=== PATIENT | female | born 1955 | race Caucasian/White ===

== ENCOUNTER 2020-01-02 08:32 | Day surgery (SDC) | payer OTHER ==
--- NOTE | 2019-12-27 09:38 | HP ---
DATE OF SURGERY: 01/02/2020 HISTORY OF PRESENT ILLNESS: The patient presents for a three year follow up colonoscopy. She had colon polyps on last colonoscopy. She also had some diverticulitis in the past. She reports some constipation and pain with bowel movement. She has reported some dark stools at times. PAST MEDICAL HISTORY: Chronic obstructive pulmonary disease. Diabetes. Anxiety. Hyperlipidemia. High blood pressure. PAST SURGICAL HISTORY: Below knee amputation. Rotator cuff. Hysterectomy. Cholecystectomy. ALLERGIES: MORPHINE. DILAUDID. MEDICATIONS: Metformin. Clonazepam. Pravastatin. Losartan. Norvasc. Dexilant. FAMILY HISTORY: None reported. SOCIAL HISTORY: Smokes a half pack of cigarettes a day, denies alcohol. REVIEW OF SYSTEMS: CONSTITUTIONAL: No fever or chills. CHEST: Denies shortness of breath. CVS: Denies chest pain. ABDOMEN: Denies abdominal pain, nausea, vomiting, diarrhea. Reports occasional constipation and dark stool as noted. : Denies dysuria or hematuria. PHYSICAL EXAMINATION: GENERAL: No acute distress. CHEST: Nonlabored. No shortness of breath. CVS: Regular rate and rhythm. ABDOMEN: Soft, nontender to palpation. EXTREMITIES: No edema. NEUROLOGIC: Alert. PSYCHIATRIC: Appropriate. IMPRESSION: History of colon polyps, diverticulitis, constipation and dark stools. PLAN: Colonoscopy. As dictated by Jessica Vieira NP.
[2020-01-02] MEDS ORDERED: Lactated Ringers 1,000 ML IV ONE (08:45)
[2020-01-02] MEDS ORDERED: Lactated Ringers 1,000 ML IV SCH (09:00)
[2020-01-02] MEDS ORDERED: Ketamine HCl 50 MG/ML ONE (11:49)
[2020-01-02] MEDS ORDERED: DIPRIVAN 200 MG/20 ML IV ONE (11:49)
[2020-01-02 12:52] VITALS: BP 120/67; PULSE 66; O2SAT 94
--- NOTE | 2020-01-06 08:35 | OP ---
SURGERY DATE/TIME: 01/02/2020 1149 PREOPERATIVE DIAGNOSIS: Follow up previous polyps. POSTOPERATIVE DIAGNOSIS: Moderate diverticulosis. PROCEDURE: Colonoscopy complete to cecum. SURGEON: Yrn Mcwilliams M.D. ANESTHESIA: MAC. COMPLICATIONS: None. CONDITION: Stable. PLAN: Rescope five years. PREP SCORE: Excellent. WITHDRAWAL TIME: Six minutes. INDICATION: A 64 year old requiring follow up. DESCRIPTION OF PROCEDURE: Taken to endoscopy. Left lateral decubitus position. Anal digital examination satisfactory. Scope introduced. Scope advanced to the cecum. Base of the cecum, ileocecal valve, appendiceal area normal. Ascending, hepatic, transverse, splenic, descending. Sigmoid moderate diverticulosis. Rectum and anus satisfactory. PLAN: Follow up in five years.
== END 2020-01-02 13:08 | disposition home or self-care (01) ==
LOC: SDC 08:32
PROVIDERS: ATTEND Surgery
DX: Z09 Encounter for follow-up examination after completed treatment for conditions other than malignant neoplasm (principal); Z86.010 Personal history of colon polyps; K57.30 Diverticulosis of large intestine without perforation or abscess without bleeding; K59.00 Constipation, unspecified; E11.9 Type 2 diabetes mellitus without complications; J44.9 Chronic obstructive pulmonary disease, unspecified; E78.5 Hyperlipidemia, unspecified; F41.9 Anxiety disorder, unspecified; Z79.899 Other long term (current) drug therapy
CPT/HCPCS: 82962; J2704

== ENCOUNTER 2022-09-28 12:00 | Emergency (ER) | payer MEDICARE, OTHER ==
[2022-09-28 12:55] LABS: Absolute Neutrophil Ct (ANC) 2.85 x10^3/uL (1.4-6.9); BASOPHIL % 0.6 % (0.0-0.4); Basophil (Absolute #) 0.03 x10^3/uL (0-0.4); Eosinophil % 1.6 % (0.00-5.0); Eosinophil (Absolute #) 0.08 x10^3/uL (0-0.5); Hematocrit 41.9 % (35-47); Hemoglobin 13.7 g/dL (12.0-16.0); IMMATURE GRAN # 0.02 x10^3u/L (0.00-0.03); IMMATURE GRAN % 0.4 % (0.00-0.4); Lymphocyte (Absolute #) 1.79 x10^3/uL (1.0-4.6); Lymphocytes % 35.3 % (24.0-44.0); Mean Cell Volume 93.3 fL (78-100); Mean Corpuscular Hemoglobin 30.5 pg (26-32); Mean Corpuscular Hgb Concent. 32.7 g/dL (32-36); Mean Platelet Volume 10.2 fL (7.5-11.0); Monocytes % 5.9 % (0.0-12.0); Neutrophil % 56.2 % (36.0-66.0); Platelet Count 181 x10^3/uL (150-450); Red Blood Count 4.49 x10^6/uL (4.1-5.4); Red Cell Distribution Width 13.1 % (11.5-14.0); White Blood Count 5.1 x10^3/uL (4.0-10.5)
[2022-09-28 13:05] LABS: Appearance Clear (Clear); Bacteria None Seen /HPF (None Seen); Bilirubin Negative (Negative); Blood Negative (Negative); Epithelial Cells None Seen /HPF (None Seen); Glucose, Urine Negative (Negative); Hyaline Casts NONE SEEN /LPF (0-2); Ketones Negative (Negative); Leukocyte Esterase Negative (Negative); Nitrite Negative (Negative); Protein,Urine Dip Negative (Negative); RBC 0-2 /HPF (0-5); Specific Gravity <=1.005 (1.005-1.030); WBC 0-2 /HPF (0-5)
[2022-09-28 13:08] LABS: ALBUMIN 3.8 g/dL (3.5-5.0); ALKALINE PHOSPHATASE 89 U/L (38-126); ANION GAP 10.8 MEQ/L (5-15); BLOOD UREA NITROGEN 7 mg/dL (7-17); CHLORIDE 107 mmol/L (98-107); Calcium 8.4 mg/dL (8.4-10.2); Carbon Dioxide 30 mmol/L (22-30); EST GLOMERULAR FILTRATION RATE > 60.0 ML/MIN; Glucose 102 mg/dL (74-106); Potassium 3.6 mmol/L (3.5-5.1); SGOT/AST 24 U/L (14-36); SGPT/ALT 19 U/L (0-35); SODIUM 144 mmol/L (137-145); Total Protein 6.8 g/dL (6.3-8.2)
--- NOTE | 2022-09-28 13:15 | ERPHSYRPT ---
- History of Present Illness Time Seen by Provider: 09/28/22 13:13 Source: patient Exam Limitations: no limitations Patient Subjective Stated Complaint: C/O black stools Triage Nursing Assessment: Patient brought back to ER in a W/C. She is alert and oriented. No SOB. Patient with artificial leg from BK amputation. She is steady on her feet; assist with stand by assist of one staff member to use toilet without difficulties. Denies pain. Physician History: Patient is a 66-year-old female presents to the emergency department as a referral from her primary care doctor for evaluation of dark tarry stools. Patient states she feels somewhat weak. No other complaints no pain. No nausea vomiting diaphoresis. Upon presentation patient appears well. No distress. Patient ambulatory with a below-knee prosthesis. Vital stable. Patient voices no other complaints or concerns at this time.\ Portions of this note were created with voice recognition technology. There may be grammatical, spelling, punctuation or sound alike errors Timing/Duration: today Severity: mild Modifying Factors: Improves With: nothing Associated Symptoms: denies symptoms Allergies/Adverse Reactions: fentanyl Allergy (Verified 09/28/22 12:19) morphine Allergy (Verified 09/28/22 12:19) Hives hydromorphone [From Dilaudid] Adverse Reaction (Verified 09/28/22 12:19) Headache Home Medications: Aspirin [Baby Aspirin] 81 mg PO DAILY 04/06/13 [History] clonazePAM [Clonazepam] 2 mg PO HS 04/06/13 [History] Amlodipine Besylate 5 mg [Norvasc 5 mg] 2.5 mg PO DAILY 01/02/20 [History] Benazepril HCl [Lotensin] 20 mg PO DAILY 01/02/20 [History] Omeprazole Magnesium [Prilosec] 40 mg PO DAILY 01/02/20 [History] Clopidogrel Bisulfate [PLAVIX Tablet] 1 tab PO DAILY 09/28/22 [History] Fluticasone/Umeclidin/Vilanter [Trelegy Ellipta 100-62.5-25] 1 puff PO BID 09/28/22 [History] Glyburide 5 mg [Micronase 5 MG] 1 tab PO DAILY 09/28/22 [History] Hydrocodone/Acetaminophen [Hydrocodone-Acetamin 7.5-325] 1 tab PO Q6H PRN PRN 09/28/22 [History] Pregabalin 50 mg [Lyrica 50MG] 1 cap PO BID 09/28/22 [History] Hx Tetanus, Diphtheria Vaccination/Date Given: Yes Hx Influenza Vaccination/Date Given: Yes Hx Pneumococcal Vaccination/Date Given: No Immunizations Up to Date: Yes Travel Risk - International Travel Have you traveled outside of the country in past 3 weeks: No - Coronavirus Screening Are you exhibiting any of the following symptoms?: No Close contact with a COVID-19 positive Pt in past 14-21 Days: No - Vaccine Status Have you recieved a Covid-19 vaccination: Yes Director Graphics: [employer] - Vaccination Dates Date of 2cond Vaccination (if applicable): ? - Review of Systems Constitutional: No Symptoms, No Fever, No Chills Eyes: No Symptoms Ears, Nose, & Throat: No Symptoms Respiratory: No Symptoms, No Cough, No Dyspnea Cardiac: No Symptoms, No Chest Pain, No Edema, No Syncope Abdominal/Gastrointestinal: No Symptoms, No Abdominal Pain, No Nausea, No Vo miting, No Diarrhea Genitourinary Symptoms: No Symptoms, No Dysuria Musculoskeletal: No Symptoms, No Back Pain, No Neck Pain Skin: No Symptoms, No Rash Neurological: No Symptoms, No Dizziness, No Focal Weakness, No Sensory Changes Psychological: No Symptoms Endocrine: No Symptoms Hematologic/Lymphatic: No Symptoms Immunological/Allergic: No Symptoms All Other Systems: Reviewed and Negative - Past Medical History Pertinent Past Medical History: Yes Neurological History: No Pertinent History ENT History: No Pertinent History Cardiac History: Aneurysm, Hypertension Respiratory History: COPD, Emphysema, Sleep Apnea Endocrine Medical History: Diabetes Type II Musculoskeletal History: Degenerative Disk Disease GI Medical History: Diverticulosis, Gallbladder Disease, Polyps History: No Pertinent History Psycho-Social History: Depression Female Reproductive Disorders: No Pertinent History - Past Surgical History Past Surgical History: Yes Neuro Surgical History: No Pertinent History Cardiac: Angioplasty, Cardiac Catheterization Respiratory: No Pertinent History Gastrointestinal: Cholecystectomy Genitourinary: No Pertinent History Musculoskeletal: Amputation, Orthopedic Surgery Female Surgical History: Section, Hysterectomy Other Surgical History: Left leg BKA, Right foot surgery, Bilateral shoulder repair, left carpal tunnel x 2, tumor removed off of left arm - Social History Smoking Status: Current every day smoker How long have you smoked: YRS Exposure to second hand smoke: No Drug Use: none Patient Lives Alone: No Significant Family History: no pertinent family hx - Nursing Vital Signs Nursing Vital Signs: Initial Vital Signs Temperature 97.7 F 09/28/22 12:19 Pulse Rate 47 L 09/28/22 12:19 Respiratory Rate 11 L 09/28/22 12:19 Blood Pressure 149/73 09/28/22 12:19 O2 Sat by Pulse Oximetry 96 09/28/22 12:19 Pain Scale Pain Intensity 0 - Physical Exam General Appearance: no apparent distress, alert Eye Exam: PERRL/EOMI, eyes nml inspection Ears, Nose, Throat Exam: normal ENT inspection, TMs normal, pharynx normal, moist mucous membranes Neck Exam: normal inspection, non-tender, supple, full range of motion Respiratory Exam: normal breath sounds, lungs clear, airway intact, No respiratory distress Cardiovascular Exam: regular rate/rhythm, normal heart sounds, normal peripheral pulses Gastrointestinal/Abdomen Exam: soft, normal bowel sounds, No tenderness, No mass Back Exam: normal inspection, normal range of motion, No CVA tenderness, No vertebral tenderness Extremity Exam: normal inspection, normal range of motion, pelvis stable, other (Left BKA) Neurologic Exam: alert, oriented x 3, cooperative, normal mood/affect, nml cerebellar function, nml station & gait, sensation nml, No motor deficits Skin Exam: normal color, warm, dry, No rash Lymphatic Exam: No adenopathy SpO2 Interpretation: normal SpO2: 96 O2 Delivery: Room Air - Course Nursing assessment & vital signs reviewed: Yes EKG Interpreted by Me: RATE (47), Sinus Rhythm, NORMAL AXIS, NORMAL INTERVALS Ordered Tests: Active Orders 24 hr Category Date Time Status EKG-ER Only STAT Care 09/28/22 13:30 Active CBC W DIFF Stat Lab 09/28/22 12:50 Completed CMP Stat Lab 09/28/22 12:50 Completed TROPONIN Q4H Lab 09/28/22 12:50 Completed TROPONIN Q4H Lab 09/28/22 17:30 Ordered TROPONIN Q4H Lab 09/28/22 21:30 Ordered UA W/RFX UR CULTURE Stat Lab 09/28/22 12:26 Completed Lab/Rad Data: Laboratory Result Diagrams 09/28/22 12:50 09/28/22 12:50 Laboratory Results 09/28/22 09/28/22 09/28/22 Range/Units 12:50 12:50 12:50 WBC 5.1 (4.0-10.5) x10^3/uL RBC 4.49 (4.1-5.4) x10^6/uL Hgb 13.7 (12.0-16.0) g/dL Hct 41.9 (35-47) % MCV 93.3 (78-100) fL MCH 30.5 (26-32) pg MCHC 32.7 (32-36) g/dL RDW 13.1 (11.5-14.0) % Plt Count 181 (150-450) x10^3/uL MPV 10.2 (7.5-11.0) fL Gran % 56.2 (36.0-66.0) % Immature Gran % (Auto) 0.4 (0.00-0.4) % Nucleat RBC Rel Count 0.0 (0.00-0.1) % Eos # (Auto) 0.08 (0-0.5) x10^3/uL Immature Gran # (Auto) 0.02 (0.00-0.03) x10^3u/L Absolute Lymphs (auto) 1.79 (1.0-4.6) x10^3/uL Absolute Monos (auto) 0.30 (0.0-1.3) x10^3/uL Absolute Nucleated RBC 0.00 (0.00-0.01) x10^3u/L Lymphocytes % 35.3 (24.0-44.0) % Monocytes % 5.9 (0.0-12.0) % Eosinophils % 1.6 (0.00-5.0) % Basophils % 0.6 (0.0-0.4) % Absolute Granulocytes 2.85 (1.4-6.9) x10^3/uL Basophils # 0.03 (0-0.4) x10^3/uL Sodium 144 (137-145) mmol/L Potassium 3.6 (3.5-5.1) mmol/L Chloride 107 (98-107) mmol/L Carbon Dioxide 30 (22-30) mmol/L Anion Gap 10.8 (5-15) MEQ/L BUN 7 (7-17) mg/dL Creatinine 0.50 L (0.52-1.04) mg/dL Estimated GFR > 60.0 ML/MIN Glucose 102 (74-106) mg/dL Calcium 8.4 (8.4-10.2) mg/dL Total Bilirubin 0.30 (0.2-1.3) mg/dL AST 24 (14-36) U/L ALT 19 (0-35) U/L Alkaline Phosphatase 89 (38-126) U/L Troponin I < 0.012 (0.000-0.034) ng/mL Serum Total Protein 6.8 (6.3-8.2) g/dL Albumin 3.8 (3.5-5.0) g/dL Urine Color (Yellow) Urine Appearance (Clear) Urine pH (4.6-8.0) Ur Specific Homer (1.005-1.030) Urine Protein (Negative) Urine Glucose (UA) (Negative) mg/dL Urine Ketones (Negative) Urine Blood (Negative) Urine Nitrite (Negative) Urine Bilirubin (Negative) Urine Urobilinogen (0.2) mg/dL Ur Leukocyte Esterase (Negative) U Hyaline Cast (Auto) (0-2) /LPF Urine Microscopic RBC (0-5) /HPF Urine Microscopic WBC (0-5) /HPF Ur Epithelial Cells (None Seen) /HPF Urine Bacteria (None Seen) /HPF Urine Culture Reflexed (NO) 09/28/22 Range/Units 12:26 WBC (4.0-10.5) x10^3/uL RBC (4.1-5.4) x10^6/uL Hgb (12.0-16.0) g/dL Hct (35-47) % MCV (78-100) fL MCH (26-32) pg MCHC (32-36) g/dL RDW (11.5-14.0) % Plt Count (150-450) x10^3/uL MPV (7.5-11.0) fL Gran % (36.0-66.0) % Immature Gran % (Auto) (0.00-0.4) % Nucleat RBC Rel Count (0.00-0.1) % Eos # (Auto) (0-0.5) x10^3/uL Immature Gran # (Auto) (0.00-0.03) x10^3u/L Absolute Lymphs (auto) (1.0-4.6) x10^3/uL Absolute Monos (auto) (0.0-1.3) x10^3/uL Absolute Nucleated RBC (0.00-0.01) x10^3u/L Lymphocytes % (24.0-44.0) % Monocytes % (0.0-12.0) % Eosinophils % (0.00-5.0) % Basophils % (0.0-0.4) % Absolute Granulocytes (1.4-6.9) x10^3/uL Basophils # (0-0.4) x10^3/uL Sodium (137-145) mmol/L Potassium (3.5-5.1) mmol/L Chloride (98-107) mmol/L Carbon Dioxide (22-30) mmol/L Anion Gap (5-15) MEQ/L BUN (7-17) mg/dL Creatinine (0.52-1.04) mg/dL Estimated GFR ML/MIN Glucose (74-106) mg/dL Calcium (8.4-10.2) mg/dL Total Bilirubin (0.2-1.3) mg/dL AST (14-36) U/L ALT (0-35) U/L Alkaline Phosphatase (38-126) U/L Troponin I (0.000-0.034) ng/mL Serum Total Protein (6.3-8.2) g/dL Albumin (3.5-5.0) g/dL Urine Color Yellow (Yellow) Urine Appearance Clear (Clear) Urine pH 7.0 (4.6-8.0) Ur Specific Homer <=1.005 (1.005-1.030) Urine Protein Negative (Negative) Urine Glucose (UA) Negative (Negative) mg/dL Urine Ketones Negative (Negative) Urine Blood Negative (Negative) Urine Nitrite Negative (Negative) Urine Bilirubin Negative (Negative) Urine Urobilinogen 1.0 A (0.2) mg/dL Ur Leukocyte Esterase Negative (Negative) U Hyaline Cast (Auto) NONE SEEN (0-2) /LPF Urine Microscopic RBC 0-2 (0-5) /HPF Urine Microscopic WBC 0-2 (0-5) /HPF Ur Epithelial Cells None Seen (None Seen) /HPF Urine Bacteria None Seen (None Seen) /HPF Urine Culture Reflexed NO (NO) - Progress Progress: improved Progress Note: Patient is a 66-year-old female presents to our ED as a referral from her primary care doctor for evaluation of dark stools and generalized malaise/fatigue. Patient's physical exam essentially unremarkable. Patient has a left below-knee amputation. No chest pain or shortness of breath. Symptoms are mild to moderate in intensity. No specific worsening improving factors. Patient voices no other complaints or concerns at this time. Portions of this note were created with voice recognition technology. There may be grammatical, spelling, punctuation or sound alike errors 09/28/22 14:26 Work-up essentially nonremarkable. CBC CMP ordered. Both negative. Troponin negative. Urinalysis negative. Likely assess the stool for blood however this is done via stool sample. Patient unable to produce a stool sample in our ED. Patient on Prilosec at home. Patient advised discontinue Prilosec and we will initiate pantoprazole. Patient feels well. Patient states she is ready for discharge. She has no other complaints. Patient understands that she will need to follow-up with her primary care doctor this week to arrange for an outpatient colonoscopy and possibly an EGD. Patient's last colonoscopy was over 10 years ago per patient. Patient has a sinus bradycardia on her EKG. However this is chronic. Patient has no symptoms regarding to the bradycardia. No lightheadedness. No dizziness. No chest pain. Complexity of problems is acute. Complexity of the problem is moderate acute complicated with systemic manifestations. No critical care time Complexity of data reviewed and analyzed is moderate. Patient served as independent historian. Laboratory work-up and urinalysis were reviewed and analyzed by Dr. Tucker. EKG independently analyzed by Dr. Tucker. Attempted to contact patient's primary care doctor for follow-up and update as primary care doctor referred patient to our ED. However we will and unable to contact patient's provider for an update. Risk of complication and or risk morbidity/mortality of patient management is moderate. A prescription for pantoprazole was forwarded to patient's pharmacy. No social determinants of health present to preclude follow-up. at bedside. They voiced no other complaints or concerns at this time. Spent for discharge is approximately 10 to 15 minutes. Portions of this note were created with voice recognition technology. There may be grammatical, spelling, punctuation or sound alike errors 09/28/22 14:30 Counseled pt/family regarding: lab results, diagnosis, need for follow-up - Departure Departure Disposition: Home Clinical Impression: Dark stools, Malaise and fatigue Condition: Stable Critical Care Time: No Referrals: [facility] [Primary Care Provider] - Follow up/PCP as directed Additional Instructions: Discharge/Care Plan ELIEZER SALEH was seen on 09/28/22 in the Emergency Room. The patient was counseled regarding Diagnosis,Lab results, Imaging studies, need for follow up and when to return to the Emergency Room. Prescriptions given: Discharge Note I have spoken with the patient and/or caregivers. I have explained the patient's condition, diagnosis and treatment plan based on the information available to me at this time. I have answered the patient's and/or caregiver's questions and addressed any concerns. The patient and/or caregivers have as good understanding of the patient's diagnosis, condition and treatment plan as can be expected at this point. The vital signs have been stable. The patient's condition is stable and appropriate for discharge from the emergency department. The patient will pursue further outpatient evaluation with the primary care physician or other designated or consulting physician as outlined in the disc harge instructions. The patient and/or caregivers are agreeable to this plan of care and follow-up instructions have been explained in detail. The patient and/or caregivers have received these instruction. The patient/and or caregivers are aware that any significant change in condition or worsening of symptoms should prompt an immediate return to this or the closest emergency department or call 911. Prescriptions: PANTOPRAZOLE 40 mg Tablet [Protonix 40MG Tablet] 40 mg PO QPM 14 Days #14 tab
[2022-09-28 13:19] LABS: ADD URINE CULTURE? NO (NO)
[2022-09-28 14:09] VITALS: BP 114/68; PULSE 50
[2022-09-28 14:24] VITALS: O2SAT 96
== END 2022-09-28 14:35 | disposition home or self-care (01) ==
LOC: ED 12:00
DX: R19.5 Other fecal abnormalities (principal); R53.81 Other malaise; R53.83 Other fatigue; R53.1 Weakness; I10 Essential (primary) hypertension; E11.9 Type 2 diabetes mellitus without complications; Z79.02 Long term (current) use of antithrombotics/antiplatelets; Z79.84 Long term (current) use of oral hypoglycemic drugs; Z79.891 Long term (current) use of opiate analgesic; Z79.899 Other long term (current) drug therapy; Z72.0 Tobacco use
CPT/HCPCS: 36415; 80053; 81001; 84484; 85025; 93005; 99283